=== PATIENT | male | born 1990 | race African-American/Black ===

== ENCOUNTER 2021-03-31 10:40 | Emergency (ER) | payer OTHER ==
[~2021-03-31] VITALS: Ht 177.8 cm; Wt 78.0 kg
[2021-03-31 12:55] LABS: BASOPHILS % 0.3 % (0.0-2.0); EOSINOPHILS % 0.3 % (0.0-5.0); HEMOGLOBIN. 13.3 g/dL (14.0-18.0); LYMPHOCYTES % 12.8 % (20.0-50.0); MEAN CORPUSCULAR HEMOGLOBIN 30.6 pg (28.0-32.0); MEAN CORPUSCULAR VOLUME 90.1 fL (80.0-94.0); MEAN PLATELET VOLUME 7.1 fl (7.4-10.4); MONOCYTES % 9.2 % (2.0-8.0); NEUTROPHILS % 77.4 % (40.0-76.0); PLATELET 278 x1000/uL (130-400); RED BLOOD CELL COUNT 4.33 mill/uL (4.7-6.1); RED CELL DISTRIBUTION WIDTH 14.1 % (11.6-14.6)
[2021-03-31 13:03] LABS: CHLORIDE 105 mEq/L (98-107)
[2021-03-31] MEDS ORDERED: AMPICILLIN SOD/SULBACTAM NA 3 G in SODIUM CHLORIDE 0.9% 100 ML IV SCH (14:15)
[2021-03-31] MEDS ORDERED: DIPHENHYDRAMINE 50MG/ML VIAL IV ONE (15:30)
[2021-03-31] MEDS ORDERED: METOCLOPRAMIDE HCL 10MG/2ML VIAL IV ONE (15:30)
[2021-03-31] MEDS ORDERED: IOHEXOL-300 100 ML BOTTLE ONE (16:28)
[2021-03-31 17:12] VITALS: BP 121/91
== END 2021-03-31 18:09 | disposition home or self-care (01) ==
LOC: ER 10:54
DX: R50.82 Postprocedural fever (principal); R51.9 Headache, unspecified; H92.02 Otalgia, left ear; R41.82 Altered mental status, unspecified; R11.2 Nausea with vomiting, unspecified
CPT/HCPCS: 36415; 70450; 70481; 80053; 83605; 84145; 85025; 87040; 96374; 96375; 99285; J1200; J2765; Q9967; J0295; J7050

== ENCOUNTER 2022-10-01 20:07 | Emergency (ER) | payer OTHER ==
[~2022-10-01] VITALS: Ht 185.4 cm; Wt 79.2 kg
[2022-10-01 20:09] VITALS: BP 112/78
== END 2022-10-01 21:25 | disposition left against medical advice (07) ==
LOC: ER 20:07
DX: Z53.21 Procedure and treatment not carried out due to patient leaving prior to being seen by health care provider (principal)
CPT/HCPCS: 99281

== ENCOUNTER 2023-06-09 02:57 | Emergency (ER) | payer MEDICAID, OTHER ==
[~2023-06-09] VITALS: Ht 185.4 cm; Wt 80.0 kg
[2023-06-09 03:45] VITALS: BP 120/84; O2SAT 100
[2023-06-09] MEDS ORDERED: DOXYCYCLINE HYCLATE 100MG CAPSULE PO ONE (05:30)
[2023-06-09] MEDS ORDERED: CEFTRIAXONE SODIUM 1 G/VIAL IM ONE (05:30)
[2023-06-09 07:08] LABS: CLARITY URINE CLEAR (CLEAR); COLOR URINE YELLOW (YELLOW); GLUCOSE URINE NEGATIVE (NEGATIVE); KETONES URINE NEGATIVE (NEGATIVE); LEUKOCYTE ESTERASE URINE NEGATIVE (NEGATIVE); NITRITE URINE NEGATIVE (NEGATIVE); OCCULT BLOOD URINE NEGATIVE (NEGATIVE); PROTEIN URINE NEGATIVE (NEGATIVE); SPECIFIC GRAVITY URINE >1.030 (1.005-1.030); UROBILINOGEN URINE 0.2 E.U./dL (0.2-1.0)
[2023-06-09] MEDS ORDERED: DOXY100C5 PO (07:25)
[2023-06-09 07:36] VITALS: PULSE 81; RESP 16; TEMP 98.4
[2023-06-11 07:12] LABS: CHLAMYDIA TRACHOMATIS NAA Negative (Negative); NEISSERIA GONORRHOEAE NAA Negative (Negative)
== END 2023-06-09 07:37 | disposition home or self-care (01) ==
LOC: ER 02:57
DX: R30.0 Dysuria (principal); Z88.1 Allergy status to other antibiotic agents
CPT/HCPCS: 99283; 87491; 87591; 81003; 96372; J0696

== ENCOUNTER 2023-08-05 00:31 | Emergency (ER) | payer MEDICAID, OTHER ==
[~2023-08-05] VITALS: Ht 185.4 cm; Wt 78.0 kg
[~2023-08-05 00:31] MED LIST: DOXY100C5 PO
[2023-08-05 00:51] VITALS: BP 114/87; PULSE 69; RESP 14; TEMP 98; O2SAT 100
[2023-08-05] MEDS ORDERED: SULF1TAB48 MT ×2 (01:08)
[2023-08-05] MEDS ORDERED: DOXY100C5 MT ×3 (01:08→01:39)
[2023-08-05] MEDS ORDERED: CEFTRIAXONE SODIUM 1 G/VIAL IM ONE (01:45)
[2023-08-05 02:10] LABS: CLARITY URINE CLEAR (CLEAR); COLOR URINE YELLOW (YELLOW); GLUCOSE URINE NEGATIVE (NEGATIVE); KETONES URINE NEGATIVE (NEGATIVE); LEUKOCYTE ESTERASE URINE NEGATIVE (NEGATIVE); NITRITE URINE NEGATIVE (NEGATIVE); OCCULT BLOOD URINE NEGATIVE (NEGATIVE); PH URINE 6.5 (4.5-8.0); PROTEIN URINE NEGATIVE (NEGATIVE); SPECIFIC GRAVITY URINE 1.007 (1.005-1.030); UROBILINOGEN URINE 0.2 E.U./dL (0.2-1.0)
== END 2023-08-05 02:13 | disposition home or self-care (01) ==
LOC: ER 00:38
DX: R30.0 Dysuria (principal); Z88.1 Allergy status to other antibiotic agents
CPT/HCPCS: 99283; 81003; 96372; J0696